=== PATIENT | female | born 1985 | race Caucasian/White ===

== ENCOUNTER 2024-05-13 18:35 | Inpatient (IN) | payer MEDICAID, SELFPAY ==
[2024-05-13 18:48] VITALS: BP 136/82; PULSE 82; RESP 16; TEMP 36.8
[2024-05-13 19:02] LABS: HCT 36.1 % (36.0-46.0); HGB 12.4 g/dL (11.2-15.7); MCH 30.5 pg (27.0-33.0); MCHC 34.3 % (32.0-36.0); MCV 89 fL (80-95); MPV 10.7 fL (8.0-11.0); Platelet Count 173 10^3/uL (130-400); RBC 4.06 10^6/uL (3.93-5.22); RDW 12.5 % (11.7-14.6); RDW-SD 40.8 fL; WBC 7.69 10^3/uL (4.4-10.8)
[2024-05-13 20:16] VITALS: BP 126/72; PULSE 77; TEMP 36.8
[2024-05-13] MEDS: miSOPROStol 25 MCG TAB PO (20:27)
--- NOTE | 2024-05-13 21:07 | W.PM.OBHPL1 ---
Date of service: 05/13/24 Time of Service: 21:07 Assessment and Plan Assessment and plan (1) Post-dates : Status: Acute Qualifiers: Post-term type: greater than 42 weeks gestation Qualified Code(s): O48.1 - Prolonged (2) Encounter for induction of labor: Status: Acute Assessment and plan: Pt has consented to cervical ripening and oxytocine induction of labor. we discussed need for fhr monitoring and need for IV. Pt is agreeable to plan. We discussed potential c/s for obstetrical reasons. Questions answered. (3) Rh negative status during : Status: Acute Assessment and plan: needs rhogam after delivery. Qualifiers: Trimester: third trimester Qualified Code(s): O26.893 - Other specified related conditions, third trimester; Z67.91 - Unspecified blood type, Rh negative (4) Rubella non-immune status, antepartum: Status: Acute Assessment and plan: offer after delivery OB-HPI Labor/Delivery History of Present Illness Reason for Visit: IUP @ 42w EGA for induction of labor. post dates Chief Complaint: Scheduled Induction of Labor Indication for Induction: Other (postdates ). JACQUI Calculator Estimated Delivery Date Method Current WG Current Estimate 04/29/24 LMP (Certain) 42w 0d Other Estimates 04/26/24 Ultrasound #1 42w 3d Comments: Pt presents for IOL. She has been a client of [facility] since 9w EGA. has been uncomplicated. Total of 15 visits. 34lb wt gain. Labs: O neg. STI testing neg. Neg Tox. Neg serology. Rubella non-immune. cfDNA nl risk for aneuploidy Fetus Rh +. Imaging studies: 11/01/23, 165w U/S [facility] for confirmation of dates. 12/13/23, 20w EGA. Nl morphology, anterior placenta [facility]. 05/08/24, MARLA 12.6cm. VTX. Reactive NST. Pt declined IOL until 42w. Because of the policy of [facility] not to care for pt's over 42w Angelina SHANNON reached out to me 05/12/24 and I accepted transfer of the pt to [facility] for cervical ripening and IOL. Informed Consent Informed Consent: Augmentation of Labor, Induction of Labor and Risk,Benefits,Alternatives Discussed Review of Systems All systems reviewed & are unremarkable except as noted in HPI and below Genitourinary Comments: occasional contractions. Psychiatric Comments: Pt is comfortable with plan for IOL in hospital. PFSH All Active Problems (Updated 05/13/24 @ 23:01 by Alysia Wahl MD) Rubella non-immune status, antepartum (Acute) Rh negative status during (Acute) Encounter for induction of labor (Acute) Post-dates (Acute) Social History Smoking risk assessment performed?: No Housing: house History History 1 Para 0 Hx # Term Pregnancies Multiple births Hx # Pregnancies Ectopic pregnancies AB induced Hx Number of Living Children AB spontaneous Meds Allergies and Home Medications Home Medications ?Medication ?Instructions ?Recorded ?Confirmed ?Type Unknown [No Known Home Meds] 05/13/24 05/13/24 History Exam Physical Exam Vital signs: Temp Pulse Resp BP 98.2 F 77 16 126/72 05/13/24 20:16 05/13/24 20:16 05/13/24 18:48 05/13/24 20:16 Vital Signs Reviewed: Yes Constitutional Constitutional: no acute distress Detailed Labor and Delivery Exam Dilation: 0 Effacement (%): 50 station: -2 Cervix position: mid Consistency: soft Sim Score: Cervical Points Exam 0 1 2 3 Dilation Closed 1-2cm 3-4 cm 5-6cm Effacement 0-30% 40-50% 60-70% 80% Consistency Firm Medium Soft Station -3 -2 -1,0 +1,+2 Position Posterior Mid Anterior SIM Score(Cervical Ripeness Score): 6 Amniotic Membrane Status: Intact Monitor Mode: External Contraction Frequency(min): occasional Contraction Duration(sec): q4-6 Contraction Intensity: Mild Fetus A Heart Rate Baseline: 140 Monitor Accelerations: 15 X 15 Monitor Decelerations: None Variability: Moderate (6-25 BPM) Presentation: Cephalic Categories: Category I Est. Weight: 7 lb 7.931 oz HEENT Exam HEENT Exam: Normal Neck Exam Neck Exam: Normal Breast Exam Breast Exam: Not Done Respiratory Exam Respiratory Exam: Normal Cardiovascular Exam Cardiovascular Exam: Normal Abdominal Exam Abdominal Exam: Normal Rectal Exam Rectal Exam: Not Done Exam Exam: Normal (as above) Extremities Exam Extremities Exam: Normal Back/Spine/Pelvis Exam Back Exam: Not Done Pelvis Adequate: Yes Skin Exam Skin Exam: Normal Neurological Exam Neurological Exam: Normal Psychiatric Exam Psychiatric Exam: Normal Results Results Group Beta Strep: Negative Blood Type: O- Rubella Status: Nonimmune Varicella Immunity: Not Tested Ultrasound OB Ultrasound for MARLA. Indication: post dates Mean Vertical Pocket: 2.1 Total MARLA: 5.5 Exam complete. Risk Assessment Risk for Shoulder Dystocia Increased Risk?: No Risk for Pre-Eclampsia Daily Dose ASA Indicated: No Risk for Post- Hemorrhage At Risk?: No Risks Reviewed Risks Reviewed Upon Admission: Yes
[2024-05-13 22:40] VITALS: BP 145/77; PULSE 86; TEMP 36.8
[2024-05-14] VITALS (11 sets, daily range): BP systolic 98–132; BP diastolic 54–70; PULSE 65–87; RESP 18–20; TEMP 36.4–36.9
[2024-05-14] MEDS: miSOPROStol 25 MCG TAB PO ×2 (00:36→04:38)
--- NOTE | 2024-05-14 08:45 | W.PM.OBNL1 ---
Date of service: 05/14/24 Time of Service: 08:46 Informed Consent Informed Consent: Augmentation of Labor, Induction of Labor and Risk,Benefits,Alternatives Discussed Pelvic Exam Dilation: 0 station: -1 Cervix Position: mid Consistency: soft Vaginal Exam Presentation: Cephalic Contractions Monitor Mode: External Contraction Frequency(min): 5-6 Contraction Duration(sec): 50 Intensity: Mild Fetus A Monitor: External (US) Heart Rate Baseline: 145 Presentation: Cephalic Variability: Moderate (6-25 BPM) Categories: Category I FHR Rhythm: Regular Characteristics: Normal Accelerations: 15 X 15 Decelerations: None Amniotic Membrane Status: Intact Assessment and Plan Assessment and plan (1) Encounter for induction of labor: Status: Acute Assessment and plan: s/p Misoprostol cervical ripening overnight. No change in cervical dilation. Pt will begin Oxytocin for labor induction. Pt is agreeable to the plan. (2) Post-dates : Status: Acute Assessment and plan: Reassuring surveillance since admission. Qualifiers: Post-term type: greater than 42 weeks gestation Qualified Code(s): O48.1 - Prolonged Objective Temp Pulse Resp BP 98.2 F 80 18 110/61 05/14/24 07:48 05/14/24 07:48 05/14/24 07:48 05/14/24 07:48 Laboratory Results WBC 7.69 10^3/uL (4.4-10.8) 05/13/24 18:58 RBC 4.06 10^6/uL (3.93-5.22) 05/13/24 18:58 Hgb 12.4 g/dL (11.2-15.7) 05/13/24 18:58 Hct 36.1 % (36.0-46.0) 05/13/24 18:58 MCV 89 fL (80-95) 05/13/24 18:58 MCH 30.5 pg (27.0-33.0) 05/13/24 18:58 MCHC 34.3 % (32.0-36.0) 05/13/24 18:58 RDW 12.5 % (11.7-14.6) 05/13/24 18:58 Plt Count 173 10^3/uL (130-400) 05/13/24 18:58 MPV 10.7 fL (8.0-11.0) 05/13/24 18:58 ABO/Rh O Negative 05/13/24 18:58 Antibody Screen NEGATIVE 05/13/24 18:58 Vital Signs Reviewed: Yes Objective Narrative Objective Narrative: Pt admitted yesterday and received Misoprostol 25mcg q4hrs. Pt did not experience any significant contractions overnight and slept well. Results Hemoglobin/Hematocrit: Hgb 12.4 g/dL (11.2-15.7) 05/13/24 18:58 Hct 36.1 % (36.0-46.0) 05/13/24 18:58
[2024-05-14] MEDS: Lactated Ringers 1,000 ML 100 ML IV (09:00)
[2024-05-14] MEDS: Oxytocin/Normal Saline 30 UNIT/500 ML BAG 2 UNITS IV (09:01)
--- NOTE | 2024-05-14 19:14 | W.PM.OBNL1 ---
Date of service: 05/14/24 Time of Service: 19:14 Informed Consent Informed Consent: Augmentation of Labor, Induction of Labor and Risk,Benefits,Alternatives Discussed Pelvic Exam Dilation: 1 Effacement (%): 75 station: -1 Cervix Position: mid Consistency: soft Contractions Contraction Frequency(min): q4-5 Fetus A Heart Rate Baseline: 130 Presentation: Vertex Variability: Moderate (6-25 BPM) Categories: Category I Accelerations: 15 X 15 Decelerations: None Assessment and Plan Assessment and plan (1) Post-dates : Status: Acute Qualifiers: Post-term type: greater than 42 weeks gestation Qualified Code(s): O48.1 - Prolonged (2) Encounter for induction of labor: Status: Acute Assessment and plan: P0 @42wks here for IOL. Cat 1 FHT. We discussed options at this time and she is agreeable to stopping pitocin and taking misoprostol again overnight. Will use 50mcg dose this time. Hopeful for restarting pitocin in the am - possible AROM. Objective Temp Pulse Resp BP 98.4 F 65 20 110/69 05/14/24 17:06 05/14/24 18:57 05/14/24 17:06 05/14/24 18:57 Laboratory Results WBC 7.69 10^3/uL (4.4-10.8) 05/13/24 18:58 RBC 4.06 10^6/uL (3.93-5.22) 05/13/24 18:58 Hgb 12.4 g/dL (11.2-15.7) 05/13/24 18:58 Hct 36.1 % (36.0-46.0) 05/13/24 18:58 MCV 89 fL (80-95) 05/13/24 18:58 MCH 30.5 pg (27.0-33.0) 05/13/24 18:58 MCHC 34.3 % (32.0-36.0) 05/13/24 18:58 RDW 12.5 % (11.7-14.6) 05/13/24 18:58 Plt Count 173 10^3/uL (130-400) 05/13/24 18:58 MPV 10.7 fL (8.0-11.0) 05/13/24 18:58 ABO/Rh O Negative 05/13/24 18:58 Antibody Screen NEGATIVE 05/13/24 18:58 Vital Signs Reviewed: Yes Subjective Interval history since last seen: Pt was feeling more regular contractions but still very mild. She is now feeling tired and hungry and is interested in stopping pitocin. Results Hemoglobin/Hematocrit: Hgb 12.4 g/dL (11.2-15.7) 05/13/24 18:58 Hct 36.1 % (36.0-46.0) 05/13/24 18:58
[2024-05-14] MEDS: miSOPROStol 25 MCG TAB 50 MCG PO ×2 (19:44→23:45)
[2024-05-15] VITALS (12 sets, daily range): BP systolic 91–161; BP diastolic 54–78; PULSE 65–86; RESP 16–17; TEMP 36.5–37.8; O2SAT 98–99
[2024-05-15] MEDS: miSOPROStol 25 MCG TAB 50 MCG PO ×2 (04:17→09:13)
[2024-05-15] MEDS: Normal Saline Flush 10 ML SYR IVP ×2 (07:58→09:20)
--- NOTE | 2024-05-15 10:02 | W.PM.OBNL1 ---
Date of service: 05/23/24 Time of Service: 10:03 Informed Consent Informed Consent: Augmentation of Labor, Induction of Labor and Risk,Benefits,Alternatives Discussed Pelvic Exam Dilation: 1 Effacement (%): 75 station: -1 Cervix Position: mid Consistency: soft Vaginal Exam Presentation: Cephalic Comments: Cervical exam more favorable after receiving Oxytocin augmentation. Contractions Monitor Mode: External Contraction Frequency(min): occasional Contraction Duration(sec): 50 seconds Intensity: Mild Fetus A Monitor: External (US) Heart Rate Baseline: 150 Presentation: Cephalic Variability: Moderate (6-25 BPM) Categories: Category I FHR Rhythm: Regular Characteristics: Normal Accelerations: 15 X 15 Decelerations: Variable Recurrence: Intermittent (one this morning) Amniotic Membrane Status: Intact Assessment Note: FHR category 1 during the night during redosing of Misoprostol Assessment and Plan Assessment and plan (1) Encounter for induction of labor: Status: Acute Assessment and plan: Pt has requested a final dose of Misoprostol for cervical ripening. Will administer 4th dose of PO Misoprostol and offer pt Oxytocin augmentation. She is aware that she can request to stop the induction at any time and proceed with pLTCS if she desires (2) Post-dates : Status: Acute Assessment and plan: Category 1. Will continue to follow. Qualifiers: Post-term type: greater than 42 weeks gestation Qualified Code(s): O48.1 - Prolonged Objective Temp Pulse Resp BP 100.0 F H 86 20 116/64 05/15/24 08:59 05/15/24 08:28 05/14/24 17:06 05/15/24 08:28 Laboratory Results WBC 7.69 10^3/uL (4.4-10.8) 05/13/24 18:58 RBC 4.06 10^6/uL (3.93-5.22) 05/13/24 18:58 Hgb 12.4 g/dL (11.2-15.7) 05/13/24 18:58 Hct 36.1 % (36.0-46.0) 05/13/24 18:58 MCV 89 fL (80-95) 05/13/24 18:58 MCH 30.5 pg (27.0-33.0) 05/13/24 18:58 MCHC 34.3 % (32.0-36.0) 05/13/24 18:58 RDW 12.5 % (11.7-14.6) 05/13/24 18:58 Plt Count 173 10^3/uL (130-400) 05/13/24 18:58 MPV 10.7 fL (8.0-11.0) 05/13/24 18:58 ABO/Rh O Negative 05/13/24 18:58 Antibody Screen NEGATIVE 05/13/24 18:58 Vital Signs Reviewed: Yes Objective Narrative Objective Narrative: HD 3. Pt admitted 05/13/24 and received PO Misoprostol overnight with Oxytocin augmentation of labor yesterday. SVE 1cm/ Subjective Patient Reports: New Complaints Interval history since last seen: Difficult end of day yesterday. [place] weak after not eating all day (didn't realize that she could have clear liquids). Tired after Oxytocin augmentation and didn't sleep well during the night. Requesting a 4th dose of Misoprostol. Pt had significant back pain during Oxytocin augmentation yesterday. Is concerned about experiencing a similar discomfort today. Interventions Induction Indication: Post Date, Type of Induction: Misoprostol administration: Oral (Pt requests a 4th dose prior to restarting Oxytocin.) and Pitocin, Results Hemoglobin/Hematocrit: Hgb 12.4 g/dL (11.2-15.7) 05/13/24 18:58 Hct 36.1 % (36.0-46.0) 05/13/24 18:58
[2024-05-15] MEDS: Oxytocin/Normal Saline 30 UNIT/500 ML BAG 2 UNITS IV (13:33)
[2024-05-15] MEDS: Lactated Ringers 1,000 ML 125 ML IV (13:34)
--- NOTE | 2024-05-15 23:32 | PGE_ITS ---
Date of service: 05/15/24 Time of Service: 23:32 Informed Consent Informed Consent: Augmentation of Labor, Induction of Labor and Risk,Benefits,Alternatives Discussed Pelvic Exam Dilation: 1 Effacement (%): 75 station: -2 Cervix Position: mid Consistency: soft Vaginal Exam Presentation: Cephalic Contractions Monitor Mode: External Contraction Frequency(min): 3min Contraction Duration(sec): 50 Intensity: Mild/Moderate Fetus A Monitor: External (US) Heart Rate Baseline: 140 Presentation: Cephalic Variability: Moderate (6-25 BPM) Categories: Category I FHR Rhythm: Regular Characteristics: Normal Accelerations: 15 X 15 Decelerations: Late (in past 20min 3 late contractions. ) Recurrence: Intermittent Amniotic Membrane Status: Intact Assessment and Plan Assessment and plan (1) Encounter for induction of labor: Status: Acute Assessment and plan: Pt has received 2 days of cervical ripening and Oxytocin augmentation of labor with no appreciable cervical change from 1 cm and -2 station. Max Oxytocin infusion concentration 16mu/min this evening. I counseled pt that a primary delivery is advised. After the Oxytocin infusion was stopped FHR re turned to Category 1 and contractions became further apart. She was informed of the risks of procedure including risk of damage to bowel, bladder, and blood vessels during the time of the delivery. If any of those injuries were to occur she may require a repair at the time of surgery or blood transfusion or possible hysterectomy. I reviewed the risk of infection and the administration of IV Abx prior to the surgery. Her questions were answered and informed consent was signed. (2) Post-dates : Status: Acute Qualifiers: Post-term type: greater than 42 weeks gestation Qualified Code(s): O48.1 - Prolonged (3) Abnormal labor: Status: Acute Objective Temp Pulse Resp BP Pulse Ox 98.2 F 65 16 110/58 L 98 05/15/24 21:50 05/15/24 21:50 05/15/24 21:50 05/15/24 21:50 05/15/24 21:50 Laboratory Results WBC 7.69 10^3/uL (4.4-10.8) 05/13/24 18:58 RBC 4.06 10^6/uL (3.93-5.22) 05/13/24 18:58 Hgb 12.4 g/dL (11.2-15.7) 05/13/24 18:58 Hct 36.1 % (36.0-46.0) 05/13/24 18:58 MCV 89 fL (80-95) 05/13/24 18:58 MCH 30.5 pg (27.0-33.0) 05/13/24 18:58 MCHC 34.3 % (32.0-36.0) 05/13/24 18:58 RDW 12.5 % (11.7-14.6) 05/13/24 18:58 Plt Count 173 10^3/uL (130-400) 05/13/24 18:58 MPV 10.7 fL (8.0-11.0) 05/13/24 18:58 ABO/Rh O Negative 05/13/24 18:58 Antibody Screen NEGATIVE 05/13/24 18:58 Vital Signs Reviewed: Yes Objective Narrative Objective Narrative: No cervical change in 24hrs after 2 days of Oxytocin and Misoprostol cervical ripening. FHR has remained category 1 until most recent assessment and subtle late decels of FHR noted. Subjective Patient Reports: No new Complaints Interval history since last seen: Pt has been experiencing regular painful contractions for the past several hours. The contractions are well tolerated. She has been resting in bed in semi- fowlers position. Results Hemoglobin/Hematocrit: Hgb 12.4 g/dL (11.2-15.7) 05/13/24 18:58 Hct 36.1 % (36.0-46.0) 05/13/24 18:58
[2024-05-16] VITALS (19 sets, daily range): BP systolic 98–153; BP diastolic 49–81; PULSE 65–78; RESP 12–20; TEMP 36.3–37; TEMPC 36.8; O2SAT 96–99; BMI 32.8
--- NOTE | 2024-05-16 06:49 | ANES.PREOP_ITS ---
General Info Date of Service Date Performed: 05/16/24 Height: 5 ft 3 in Weight: 83.915 kg Body Mass Index (BMI): 32.8 Meds Allergies and Home Medications Allergies Allergy/AdvReac Type Severity Reaction Status Date / Time No Known Allergies Allergy Unverified 05/16/24 00:37 Home Medication ?Medication ?Instructions ?Recorded Unknown [No Known Home Meds] 05/13/24 Current Visit Medications: Current Medications Generic Name Dose Route Start Last Admin Trade Name Freq PRN Reason Stop Dose Admin Citric Acid/Sodium Citrate 30 ml 05/15/24 23:45 Sodium Citrate 30 Ml Cup PO PREOP EMBER Ringer's Solution 1,000 mls @ 200 mls/hr 05/13/24 18:45 05/15/24 13:34 IV 125 mls/hr INFUSION [facility]MBER Administration Oxytocin/Sodium Chloride 30 unit in 500 mls @ 2 mls/hr 05/14/24 08:45 05/15/24 23:10 Pitocin/Normal Saline IV 0 milliunits/min INFUSION [facility] 0 mls/hr Titration Protocol 2 MILLIUNITS/MIN Ringer's Solution 1,000 mls @ 100 mls/hr 05/14/24 08:45 05/14/24 19:47 IV Infused INFUSION [facility] Infusion Cefazolin Sodium/Dextrose 2 gm in 50 mls @ 100 mls/hr 05/15/24 23:45 Ancef Duplex IVPB PREOP [facility]MB[facility] Azithromycin 500 mg/ Sodium 250 mls @ 250 mls/hr 05/15/24 23:45 Chloride IVPB PREOP [facility] IV Miscellaneous Supplies 1 each 05/13/24 18:45 Iv Access IV DIRECTED [facility] IV Miscellaneous Supplies 1 each 05/14/24 08:45 Iv Access IV DIRECTED [facility] IV Miscellaneous Supplies 1 each 05/15/24 23:45 Iv Access IV DIRECTED [facility] Misoprostol 50 mcg 05/14/24 19:13 05/15/24 09:13 Misoprostol 25 Mcg Tab PO 50 mcg Q4H [facility]MBER Administration Sodium Chloride 0 ml 05/14/24 08:43 05/15/24 09:20 Normal Saline Flush 10 Ml Syr IVP 10 ml PRN PRN Administration Sodium Chloride 0 ml 05/14/24 20:00 05/15/24 07:58 Normal Saline Flush 10 Ml Syr IVP 10 ml BID EMBER Administration Sodium Chloride 0 ml 05/14/24 08:43 Normal Saline 10 Ml Vial IJ DIRECTED PRN Sodium Chloride 0 ml 05/15/24 23:54 Normal Saline Flush 10 Ml Syr IVP PRN PRN Sodium Chloride 0 ml 05/16/24 08:30 Normal Saline Flush 10 Ml Syr IVP BID [facility]MBER Sodium Chloride 0 ml 05/15/24 23:54 Normal Saline 10 Ml Vial IJ DIRECTED PRN Terbutaline Sulfate 0.25 mg 05/13/24 18:34 Terbutaline 1 Mg/Ml Vial SC PRN PRN PFSH Active Problems Active Problems: Problem Status Onset Code Abnormal labor Acute O62.9 Arrest of descent, delivered, current hospitalization Acute O62.1 Rubella non-immune status, antepartum Acute O09.899, Z28.39 Rh negative status during Acute O26.899, Z67.91 Encounter for induction of labor Acute Z34.90 Post-dates Acute O48.0 Prental History History 2 1 Para 0 Hx # Term Pregnancies Multiple births Hx # Pregnancies Ectopic pregnancies AB induced Hx Number of Living Children AB spontaneous Vital Signs and Lab Results Vital Signs Most Recent Vital Signs in EMR: Most Recent Vital Signs Temp Pulse Resp BP Pulse Ox 36.8 C 70 16 105/56 L 98 05/16/24 02:58 05/16/24 06:42 05/16/24 02:58 05/16/24 06:42 05/16/24 02:58 Lab Results 05/13/24 18:58 Blood Type / Crossmatch: 2 Antibody Screen NEGATIVE 05/13/24 Complete Blood Count: 2 White Blood Count 7.69 10^3/uL (4.4-10.8) 05/13/24 18:58 Red Blood Count 4.06 10^6/uL (3.93-5.22) 05/13/24 18:58 Hemoglobin 12.4 g/dL (11.2-15.7) 05/13/24 18:58 Hematocrit 36.1 % (36.0-46.0) 05/13/24 18:58 Platelet Count 173 10^3/uL (130-400) 05/13/24 18:58 Complete Metabolic Panel: 2 No Data to Display Liver Function Panel: 2 No Data to Display Coagulation Panel: 2 No Data to Display Cardiac Panel: 2 No Data to Display Arterial Blood Gas: 2 No Data to Display Venous Blood Gas: 2 No Data to Display Pancreas Panel: 2 No Data to Display Thyroid Panel: 2 No Data to Display Infectious Disease: 2 No Data to Display Blood Cultures: 2 No Data to Display Toxicology Panel: 2 No Data to Display Panel: 2 No Data to Display Anesthesia Assessment and Plan Anesthesia History Personal History: No History of Anesthesia Complications Family History: No Family History of Anesthesia Complications Exercise Tolerance Exercise Tolerance: Metabolic Equivalents>4 Cardiac & Pulmonary Exam Cardiac Exam: Normal S1/S2 Heart Sounds Pulmonary Exam: Clear Bilateral Breath Sounds Implantable Cardiac Device Does patient have a Pacemaker or an ICD?: No Airway Exam Known Difficult Airway: No Mallampati Class: 3 Mouth Opening: Normal (> 3cm) Thyromental Distance: Greater than 3 cm Neck Range of Motion: Full ROM Neck Circumference: Normal Teeth Condition: Normal Dentition ASA Classification ASA Score: ASA 2 Emergency Case?: No NPO Status NPO Status: Full Stomach Status Status: Confirmed Anesthesia Plan Resuscitation Status: Full Code Anesthesia Technique: Spinal Anesthesia Airway Planned: Natural Airway Monitors Used: Standard Monitors Preoperative Comments:: 38 yo G1 female with failure to progress. Was IOL for post dates, but minimal cervical change. Plan now for primary section. Sig PMHx: Denies major. No HTN, no RAD/asthma. Pt was originally a [facility] [facility] pt, but unfortunately is post-dates. She was encouraged to reach out to us if she has any additional questions.
[2024-05-16] MEDS: Normal Saline Flush 10 ML SYR IVP ×3 (08:15→15:41)
--- NOTE | 2024-05-16 10:16 | W.PM.OBNL1 ---
Date of service: 05/16/24 Time of Service: 10:16 Informed Consent Informed Consent: Augmentation of Labor, Section Delivery, Induction of Labor and Risk,Benefits,Alternatives Discussed Assessment and Plan Assessment and plan (1) Abnormal labor: Status: Acute (2) Arrest of descent, delivered, current hospitalization: Status: Acute (3) Post-dates : Status: Acute Qualifiers: Post-term type: greater than 42 weeks gestation Qualified Code(s): O48.1 - Prolonged Objective Temp Pulse Resp BP Pulse Ox 97.9 F 69 18 108/55 L 97 05/16/24 07:27 05/16/24 07:27 05/16/24 07:27 05/16/24 07:27 05/16/24 07:27 Laboratory Results WBC 7.69 10^3/uL (4.4-10.8) 05/13/24 18:58 RBC 4.06 10^6/uL (3.93-5.22) 05/13/24 18:58 Hgb 12.4 g/dL (11.2-15.7) 05/13/24 18:58 Hct 36.1 % (36.0-46.0) 05/13/24 18:58 MCV 89 fL (80-95) 05/13/24 18:58 MCH 30.5 pg (27.0-33.0) 05/13/24 18:58 MCHC 34.3 % (32.0-36.0) 05/13/24 18:58 RDW 12.5 % (11.7-14.6) 05/13/24 18:58 Plt Count 173 10^3/uL (130-400) 05/13/24 18:58 MPV 10.7 fL (8.0-11.0) 05/13/24 18:58 ABO/Rh O Negative 05/13/24 18:58 Antibody Screen NEGATIVE 05/13/24 18:58 Objective Narrative Objective Narrative: Oxytocin discontinued overnight. Contractions subsided. Pt comfortable during the night. She reports good movement. She wants to proceed with delivery. Results Hemoglobin/Hematocrit: Hgb 12.4 g/dL (11.2-15.7) 05/13/24 18:58 Hct 36.1 % (36.0-46.0) 05/13/24 18:58
[2024-05-16] MEDS: AZITHROMYCIN 500 MG in Normal Saline 250 ML 250 MG IVPB (11:09)
[2024-05-16] MEDS: Lactated Ringers 1,000 ML 30 ML IV (12:01)
[2024-05-16] MEDS: ceFAZolin 2 GM/50 ML BAG IVPB (12:11)
[2024-05-16] MEDS: Oxytocin/Normal Saline 30 UNIT/500 ML BAG 95 UNITS IV (12:33)
[2024-05-16] MEDS: Bupivacaine 0.25% Pres-Free 30 ML VIAL (12:40)
--- NOTE | 2024-05-16 13:01 | PDOC.OPNB_ITS ---
Date of service: 05/16/24 Time of Service: 13:01 Operative Note Operative Note Delivery Method: Unscheduled STAT: No and Primary [id number]>[id number] Weeks: Yes DATE OF PROCEDURE: 05/16/24 PRE-OP DIAGNOSES: arrest of dilation. unsuccessful induction of labor. 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 MARLA 5.5 at time of admission 05/13/24. Pt received 2 days of cervical ripening and Oxytocin augmentation of labor with no appreciable cervical change from 1 cm and -2 station. Max Oxytocin infusion concentration on day 1 was 28mu/min and on day 2 was 16mu/min. Category FHR tracing during induction process. Findings: Viable female infant in cephalic presentation with clear amniotic fluid. Wt: 3946 gm (8lb 5oz) Apgars 9/9. Nl uterus, adnexa adn bladder. Procedure Description: Patient was taken to the operating room she is placed in the sitting position and spinal anesthesia was administered without difficulty. She was then placed in the dorsal supine position with a leftward tilt. SCDs and a Padgett catheter to gravity drainage were in place. A vaginal prep with Betadine was performed and the patient was prepped and draped in the usual sterile fashion.Surgical timeout was performed. Preop antibiotics were administered. After a adequate level of anesthesia was achieved a Pfannenstiel skin incision was made approximately 2 cm superior to the pubic symphysis using a scalpel and the underlying subcutaneous tissue dissected using Bovie electrocautery to the level of the rectus fascia. The rectus fascia was then nicked in the midline and the fascial incision extended laterally using Bovie electrocautery. 2 Josh clamps were applied to the superior rectus fascia and the rectus fascia was dissected off of the underlying rectus muscles using Bovie electrocautery and blunt technique. A similar technique was carried out on the inferior rectus fascia. Rectus muscles were then in the midline and the peritoneum entered bluntly. The peritoneal incision was extended laterally using blunt technique. The vesicle-uterine peritoneum over lower uterine segment was incised with curved Chopra scissors and the bladder flap created bluntly. Scalpel was used to incise the lower uterine segment in a transverse fashion. The uterine incision was extended bluntly and the amniotic sac was ruptured with clear amniotic fluid noted. A single gloved hand was placed into the uterine cavity and the head was successfully delivered through the uterine incision followed by the trunk and extremities with the assistance of fundal pressure. The cord was doubly clamped and cut and the infant handed off to the waiting pediatric team. A segment of umbilical cord was obtained and the placenta was extracted with a combination of fundal massage and gentle cord traction. The uterus was exteriorized cleared of all clots and debris and the uterine incision reapproximated with a running lock suture of 0 Vicryl followed by a second imbricating suture of 0 Vicryl. Uterine incision was noted be hemostatic. The uterus was returned to the abdomen and the paracolic gutters cleared of all clots and debris. Uterine incision and the along with the bladder flap and the abdominal wall were all inspected and noted to be hemostatic. The rectus fascia was reapproximated with a running suture of 0 Vicryl. space within the subcutaneous tissue closed with a running suture of 2-0 Vicryl. The skin incision was reapproximated with a subcuticular closure of 4-0 Vicryl. Steri strips and a Mepilex dressing was applied. The uterus was massaged for any remaining clots and debris. The patient was transported to recovery area in stable condition. All sponge, lap, and needle counts correct x2. [place] Infant Gender: Female weight: 8 lb 11.191 oz
--- NOTE | 2024-05-16 13:16 | W.ANESPOSTOP ---
Postoperative Evaluation Date, Time and Location Date Performed: 05/16/24 Time Performed: 13:16 Patient Location: Obstetrics Vital Signs Most Recent Imported Vital Signs: Most Recent Vital Signs Temp Pulse Resp BP Pulse Ox 37.0 C 65 14 98/55 L 97 05/16/24 11:08 05/16/24 11:08 05/16/24 11:08 05/16/24 11:08 05/16/24 07:27 Most Recent Manually Entered Vital Signs: Adult Blood Pressure: 113/49 Heart Rate: 73 Respirations: 16 Oxygen Saturation (%): 98 Temperature (C): 36.8 C Pain Score (0-10 Scale): 0 Assessment Mental Status: Awake (Alert & Oriented to Patient Baseline) Airway and Respiratory Function: Patent airway with normal (patient baseline) respiratory exam Cardiovascular Function: Hemodynamically Stable Hydration Status: Adequately Hydrated Nausea & Vomiting: No Nausea or Vomiting Pain: Pt. Denies Any Pain (spinal waning) Peripheral Nerve Block: Patient did not receive a nerve block
[2024-05-16] MEDS: Naloxone 0.4 MG/ML VIAL IVP (15:36)
[2024-05-16] MEDS: Ketorolac 30 MG/ML VIAL IVP (19:11)
[2024-05-17] VITALS (12 sets, daily range): BP systolic 95–119; BP diastolic 52–72; PULSE 63–80; RESP 16–18; TEMP 36.4–36.8; O2SAT 98–99
[2024-05-17] MEDS: Ketorolac 30 MG/ML VIAL IVP (00:43)
[2024-05-17] MEDS: Normal Saline Flush 10 ML SYR IVP (00:44)
[2024-05-17 07:35] LABS: Abs Immature Grans 0.05 10^3/uL (0.0-0.06); Absolute Basophil Count 0.03 10^3/uL (0.0-0.2); Absolute Eosinophil Count 0.05 10^3/uL (0.0-0.7); Absolute Lymphocyte Count 1.22 10^3/uL (1.2-3.4); Absolute Monocyte Count 1.08 10^3/uL (0.1-0.8); Absolute Neutrophil Count 6.79 10^3/uL (1.2-6.7); Basophils % 0.3 %; Eosinophils % 0.5 %; HCT 30.6 % (36.0-46.0); HGB 10.6 g/dL (11.2-15.7); Immature Grans % 0.5 %; Lymphocytes % 13.2 %; MCH 31.3 pg (27.0-33.0); MCHC 34.6 % (32.0-36.0); MCV 90 fL (80-95); MPV 10.9 fL (8.0-11.0); Monocytes % 11.7 %; Neutrophils % 73.8 %; Platelet Count 155 10^3/uL (130-400); RBC 3.39 10^6/uL (3.93-5.22); RDW 12.9 % (11.7-14.6); RDW-SD 42.3 fL; WBC 9.22 10^3/uL (4.4-10.8)
[2024-05-17] MEDS: Docusate Sodium 100 MG CAP PO ×2 (08:55→21:32)
[2024-05-17] MEDS: Ibuprofen 600 MG TAB PO ×3 (08:55→21:32)
--- NOTE | 2024-05-17 09:30 | OBPPV_ITS ---
Date of service: 05/17/24 Time of Service: 09:31 Assessment and Plan Assessment and plan (1) Status post primary low transverse section: Status: Acute Assessment and plan: Postop day 1 status post primary low-transverse section for arrest of . Patient is doing well today. No issues or concerns. Hemoglobin is stable. Discharge home anticipated tomorrow. Ambulate, monitor vital signs, breast-feed. Subjective Subjective Interval history: Patient seen and examined this morning. Overall doing well. Pain is well- controlled. She has been up and ambulatory. She has not yet voided without her catheter in place. She is breast-feeding without difficulty. Her mood is a ppropriate. All questions answered this morning. [place] baby status: Doing well and Nursing well Exam Physical Exam Vital signs: Temp Pulse Resp BP Pulse Ox 97.5 F L 73 18 116/63 98 05/17/24 08:00 05/17/24 08:00 05/17/24 09:00 05/17/24 08:00 05/17/24 08:00 Vital Signs Reviewed: Yes HEENT Exam HEENT Exam: Normal Neck Exam Neck Exam: Normal Respiratory Exam Respiratory Exam: Normal Cardiovascular Exam Cardiovascular Exam: Normal Abdominal Exam Abdomen: Tender Fundal Exam Fundus: Below Umbilicus and Firm Extremities Exam Extremity Exam: Normal; negative Calf Tenderness Psychiatric Exam Psychiatric Exam: Normal Results Hemoglobin/Hematocrit: Hgb 10.6 g/dL (11.2-15.7) L 05/17/24 06:05 Hct 30.6 % (36.0-46.0) L 05/17/24 06:05 Abnormal Lab Findings: Abnormal Labs 05/17/24 06:05 RBC 3.39 L Hgb 10.6 L Hct 30.6 L Absolute Neutrophils 6.79 H Absolute Monocytes 1.08 H
[2024-05-17] MEDS: RHO(D) Immune Globulin 1,500 UNIT Syringe 1500 UNIT IM (12:09)
[2024-05-17] MEDS: Acetaminophen 325 MG TAB 650 MG PO (15:10)
[2024-05-17] MEDS: oxyCODONE 5 mg/Acetaminophen 325 mg TAB PO (19:45)
--- NOTE | 2024-05-18 07:20 | W.PM.OBPNV1 ---
Date of service: 05/18/24 Time of Service: 07:20 Assessment and Plan Assessment and plan (1) Status post primary low transverse section: Status: Acute Assessment and plan: Patient is postop day #2 status post primary low-transverse section for arrest of descent. She is doing well. She will transition back to her home environment. She will be seen back in the office in 1, 2, and potentially 6 weeks. All of her questions were answered. Prescription sent to the pharmacy. Precautions were given. (2) Rubella non-immune status, antepartum: Status: Acute (3) Rh negative status during : Status: Acute Qualifiers: Trimester: third trimester Qualified Code(s): O26.893 - Other specified related conditions, third trimester; Z67.91 - Unspecified blood type, Rh negative Subjective Subjective Interval history: Patient seen and examined this morning. Ready to transition back to her home environment. Doing well. Pain is well-controlled. No nausea or vomiting. She did have some itchiness with a dose of Percocet last night, however she is willing to use Percocet as needed at home if she has increasing pain or discomfort. [place] baby status: Doing well and Nursing well Exam Physical Exam Vital signs: Temp Pulse Resp BP Pulse Ox 98.2 F 75 16 110/71 99 05/17/24 20:00 05/17/24 20:00 05/17/24 20:00 05/17/24 20:00 05/17/24 20:00 Vital Signs Reviewed: Yes Constitutional Constitutional: no acute distress and average body habitus HEENT Exam HEENT Exam: Normal Neck Exam Neck Exam: Normal Respiratory Exam Respiratory Exam: Normal Cardiovascular Exam Cardiovascular Exam: Normal Abdominal Exam Abdomen: Tender Comments: Incision is dressed Fundal Exam Fundus: Below Umbilicus and Firm Extremities Exam Extremity Exam: Normal and Edema (Minimal bilateral); negative Calf Tenderness or Cold to Touch Skin Exam Skin Exam: Normal Neurological Exam Neurological Exam: Normal Psychiatric Exam Psychiatric Exam: Normal Results Hemoglobin/Hematocrit: Hgb 10.6 g/dL (11.2-15.7) L 05/17/24 06:05 Hct 30.6 % (36.0-46.0) L 05/17/24 06:05 Abnormal Lab Findings: Abnormal Labs 05/17/24 06:05 RBC 3.39 L Hgb 10.6 L Hct 30.6 L Absolute Neutrophils 6.79 H Absolute Monocytes 1.08 H
--- NOTE | 2024-05-18 07:22 | W.PM.OBDISCH ---
Date of service: 05/18/24 Time of Service: 07:22 DS: Diagnosis Discharge Diagnosis (1) Status post primary low transverse section: Status: Acute Asessment and Plan: Patient is postop day #2 status post primary low-transverse section due to arrest of descent after failed labor induction postdates. Overall she is doing well. She will transition to her home environment. She will continue to breast-feed. Pain medication sent to the pharmacy. She will have follow-up in the office in 1, 2, and 6 weeks. All questions were answered. (2) Rubella non-immune status, antepartum: Status: Acute (3) Rh negative status during : Status: Acute Discharge Plan Disposition Patient Disposition: Home Condition: Good Discharge Details Reason For Visit: IUP @ 42w EGA for induction of labor. post dates Admit Date/Time: 05/13/24 18:35 Admit Provider: Alysia Wahl Attending Provider: Alysia Wahl Primary Care Provider: None,None Hospital Course Hospital Course: Patient was admitted after 42 weeks of gestation. 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 However due to the fact that she has postdates, she risks out of their service. She presented here for labor induction. She had cervical ripening followed by Pitocin augmentation, subsequent cervical ripening and again Pitocin augmentation with no significant progress. She underwent a primary low-transverse section for arrest of descent on 05/16/2024. She delivered a viable female infant weighing 8 pounds 11 ounces. Her postoperative course was uncomplicated. She was discharged home postoperative day #2 ambulating, tolerating diet with oral pain medication and stable vital signs. She is breast-feeding her female infant. She will be seen in the office in 1, 2, and potentially 6 weeks. All questions were answered. Home Meds and New Rx's Prescriptions: New ibuprofen 800 mg tablet 800 mg PO Q8H PRNQty: 60 1RF docusate sodium [Colace] 100 mg capsule 100 mg PO BID Qty: 30 1RF oxycodone-acetaminophen [Percocet] 5-325 mg tablet 1 tab PO Q8H PRNQty: 7 0RF Discharge Instructions Stand Alone Forms: BC Instructions, BC Discharge Instruc Activity:: pelvic rest Equipment/Supplies:: No Equipment Needed Diet:: As Tolerated Discharge Orders Discharge Orders: Discharge Order (Routine); Ordered 05/18/24 Ordered By: Desire Shelton OB:DS Summary Summary Delivery Method: Primary Contraception Discussed Contraception Discussed: No, [place] Infant Gender-Baby A: Female weight: 8 lb 11.191 oz Status at Discharge Functional status at discharge: independent ambulation Overall status at discharge: patient is progressing back to baseline Mental Status: mental status grossly normal Speech and Movement: speech and movement normal Mood: congruent mood Affect: normal affect Quality:SDOH Health Related Social Needs: No Data to Display Hospital Course Patient was admitted to the [facility] center for labor induction due to postdate ism. She received cervical ripening, followed by Pitocin, followed by cervical ripening and subsequently again by Pitocin augmentation with no significant cervical change. In light of this, and her status beyond 42 weeks, the decision was made for primary section. The risk benefits and alternatives had been discussed with the patient. She underwent uncomplicated primary low-transverse section for delivery of a viable female weighing 8 pounds 11 ounces. She had an uncomplicated postoperative course and was discharged home postoperative day #2 ambulating tolerating regular diet and oral pain medication with stable vital signs. Exam Physical Exam Vital signs: Temp Pulse Resp BP Pulse Ox 98.2 F 75 16 110/71 99 05/17/24 20:00 05/17/24 20:00 05/17/24 20:00 05/17/24 20:00 05/17/24 20:00 Constitutional Comments: See physical exam from progress note dated 05/18/2024 [facility] All Active Problems (Updated 05/18/24 @ 07:22 by Desire Shelton DO) Status post primary low transverse section (Acute) Rubella non-immune status, antepartum (Acute) Rh negative status during (Acute) Medical History (Updated 05/18/24 @ 07:22 by Desire Shelton DO) Post-dates Social History Smoking risk assessment performed?: No Housing: house History History 1 Para 0 Hx # Term Pregnancies Multiple births Hx # Pregnancies Ectopic pregnancies AB induced Hx Number of Living Children AB spontaneous DS: Data Vitals/I&O Vitals and I&O: Vital Signs Temperature 98.2 F 05/17/24 20:00 Temperature Source Oral 05/17/24 20:00 Pulse 75 05/17/24 20:00 Pulse Rhythm Regular 05/17/24 20:00 Respiratory Rate 16 05/17/24 20:00 Respiratory Depth Normal 05/17/24 20:00 Blood Pressure 110/71 05/17/24 20:00 Blood Pressure Mean 84 05/17/24 20:00 Pulse Oximetry 99 05/17/24 20:00 Oxygen Delivery Method Room Air 05/13/24 18:48 Oxygen Flow Rate 0 05/13/24 18:48 Pain Level 5 05/17/24 15:10 Intake & Output 05/17/24 05/17/24 05/18/24 11:59 23:59 11:59 Output Total 3600 / 4500 900 / 4500 Balance -3600 / -4500 -900 / -4500 Output: Urine 3600 / 4500 900 / 4500 Other: Urine Color Yellow Yellow Urine Appearance Clear Clear Urine Odor None None Comment vi morrison draining large amounts of clear yellow urine Data Completed and Pending Labs on day of discharge: Labs from last 24 hours 05/17/24 05/16/24 05/13/24 06:05 15:43 18:58 WBC 9.22 RBC 3.39 L Hgb 10.6 L Hct 30.6 L MCV 90 MCH 31.3 MCHC 34.6 RDW 12.9 Plt Count 155 MPV 10.9 Immature Gran % 0.5 Neutrophils % 73.8 Lymphocytes % 13.2 Monocytes % 11.7 Eosinophils % 0.5 Basophils % 0.3 Nucleated RBC % 0.0 Absolute Neutrophils 6.79 H Absolute Lymphocytes 1.22 Absolute Monocytes 1.08 H Absolute Eosinophils 0.05 Absolute Basophils 0.03 ABO/Rh O Negative Antibody Screen NEGATIVE Screen Negative Rhogam Unit Number [id number] Unit Expiration Date 08/08/24 Product Lot # [id number]
[2024-05-18 07:45] VITALS: BP 124/66; PULSE 83; RESP 14; TEMP 36.5
[2024-05-18] MEDS: Ibuprofen 600 MG TAB PO (09:25)
[2024-05-18] MEDS: Acetaminophen 325 MG TAB 650 MG PO (09:25)
== END 2024-05-18 13:40 | disposition home or self-care (01) | DRG 788 ==
PROVIDERS: Admitting Provider Obstetrics & Gynecology Gynecology; Visit Provider Obstetrics & Gynecology Gynecology
PROC: 10D00Z1 Extraction of Products of Conception, Low, Open Approach (ICD-10-PCS; CPT 59514; principal; 2024-05-16 12:00)
DX: O48.1 Prolonged pregnancy (principal); O26.893 Other specified pregnancy related conditions, third trimester; Z37.0 Single live birth; Z3A.42 42 weeks gestation of pregnancy; Z67.91 Unspecified blood type, Rh negative; Z28.39 Other underimmunization status; O62.1 Secondary uterine inertia; O61.0 Failed medical induction of labor
CPT/HCPCS: 59514; 36415; 85027; 85461; 86850; 86900; 86901; 90384; 59200; 85025; G0378; J0131; J0456; J0665; J0690; J1100; J1885; J2274; J2310; J2371; J2405; J2790; J3010; J3490